=== PATIENT | male | born 1980 | race Two or more races ===

== ENCOUNTER 2020-04-09 12:09 | Inpatient (IN) | payer BC, MEDICAID ==
[~2020-04-09] VITALS: Ht 167.6 cm; Wt 81.0 kg
--- NOTE | 2020-04-09 12:35 | NUR ---
Cxr at bedside-Reviewed with provider (Suspicious for Covid) After discussion with legislative correspondent will leave patient in NON-negative pressure room as unlikely he will have aerosolized procedure. Room placed on Airborne Precautions After provider evaluation: plan to admit
--- NOTE | 2020-04-09 12:53 | NUR ---
repeat room air sat 80-82% good waveform on room air. Patient gets very dizzy off oxygen even at rest [employer] placing piv and getting labs
[2020-04-09] MEDS ORDERED: DOXYCYCLINE 100 MG in DEXTROSE 5% 250 ML IV ONE (13:00)
--- NOTE | 2020-04-09 13:53 | NUR ---
2 piv placed from which 2 set of blood cultures and full set of labs drawn
[2020-04-09 14:03] LABS: MEAN CORPUSCULAR HEMOGLOBIN 27.6 pg (27.5-34.5); MEAN CORPUSCULAR HGB CONC 33.1 g/dL (33.2-36.2); MEAN CORPUSCULAR VOLUME 83.2 fL (81-97); MEAN PLATELET VOLUME 7.3 fL (7.4-10.4); PLATELET COUNT 312 x10^3/uL (130-400); RED BLOOD COUNT 5.55 x10^6/uL (4.38-5.82); RED CELL DISTRIBUTION WIDTH 13.6 % (9.4-14.8)
[2020-04-09 14:08] LABS: ALBUMIN 2.5 g/dL (3.4-5.0); ANION GAP 7 mmol/L (5-15); CALCIUM 8.5 mg/dL (8.5-10.1); CHLORIDE 106 mmol/L (98-107); CREATININE 0.88 mg/dL (0.7-1.3)
--- NOTE | 2020-04-09 14:09 | NUR ---
doxy iv abx ordered from pharmacy (not stocketed in er [facility])
[2020-04-09] MEDS ORDERED: CEFTRIAXONE PMX 1GM/50ML 50 ML ONE (14:11)
--- NOTE | 2020-04-09 14:21 | NUR ---
medicated per emat 500ml bolus and rocephin abx Diet tray ordered Updated on estimated poc
[2020-04-09 14:27] LABS: C-REACTIVE PROTEIN, QUANT > 19.00 mg/dL (0.02-0.49)
[2020-04-09] MEDS ORDERED: SODIUM CHLORIDE 0.9%, 500ML IVBOLUS ONE (14:30)
[2020-04-09] MEDS ORDERED: CEFTRIAXONE PMX 1GM/50ML 50 ML IV ONE (14:30)
--- NOTE | 2020-04-09 15:01 | NUR ---
Hospitalist at bedside to admit rocephin complete, doxycycline started vss remain unchanged post 500ml bolus-provider aware Provided with Lunch tray Updated on estimated poc
[2020-04-09 15:11] LABS: D-DIMER (DIC) 2.34 ug/mlFEU (0.00-0.52); PROTIME 9.4 Seconds (9.6-11.5)
[2020-04-09] MEDS ORDERED: ACETAMINOPHEN 325 MG TABLET PO PRN (15:30)
[2020-04-09] MEDS ORDERED: hydrALAzine 20 MG/ML, 1ML IVPush PRN (15:30)
[2020-04-09] MEDS ORDERED: AZITHROMYCIN 500 MG in SODIUM CHLORIDE 0.9% 250 ML IV SCH (15:30)
[2020-04-09] MEDS ORDERED: ONDANSETRON 2MG/ML, 2ML IVPush PRN (15:30)
[2020-04-09 15:40] LABS: BASOPHILS % (AUTO) 0 % (0-1); EOSINOPHILS # (AUTO) 0.01 x10^3/uL (0-0.4); EOSINOPHILS % (AUTO) 0 % (1-7); LYMPHOCYTES # (AUTO) 1.37 x10^3/uL (1-3.4); LYMPHOCYTES % (AUTO) 11 % (22-44); MD SCAN; MONOCYTES # (AUTO) 0.03 x10^3/uL (0.2-0.8); MONOCYTES % (AUTO) 0 % (2-9); NEUTROPHILS # (AUTO) 10.88 x10^3/uL (1.8-6.8); NEUTROPHILS % (AUTO) 89 % (42-75)
--- NOTE | 2020-04-09 16:00 | NUR ---
INTRODUCED MYSELF TO PT. PT RESTING COMFORTABLY. WILL CONTINUE TO MONITOR.
--- NOTE | 2020-04-09 16:01 | NUR ---
Called hospitalist to ask for potassium repletion order and to re-time azithromycin until tmrw (just completed Doxy). Md to place orders shortly
--- NOTE | 2020-04-09 16:09 | NUR ---
GAVE REPORT TO HAMZAH DUNHAM Addendum: 04/09/20 at 1610 by RAE GAVE REPORT TO PIOTR DUNHAM
[2020-04-09] MEDS: ENOXAPARIN 40 MG/0.4 ML SQ SCH (16:45)
[2020-04-09] MEDS: ASCORBIC ACID 500 MG TABLET PO SCH ×2 (16:45→20:14)
[2020-04-09 16:54] VITALS: BP 118/79
[2020-04-09] MEDS ORDERED: POTASSIUM CHLORIDE 20 MEQ TAB.ER.PRT PO ONE (17:00)
[2020-04-09 21:36] VITALS: BP 111/76
[2020-04-10 00:57] VITALS: BP 105/69
[2020-04-10 01:59] VITALS: BP 90/55
[2020-04-10 05:58] LABS: CHLORIDE 110 mmol/L (98-107)
[2020-04-10 06:05] LABS: BASOPHILS # (AUTO) 0.04 x10^3/uL (0-0.1); BASOPHILS % (AUTO) 1 % (0-1); EOSINOPHILS # (AUTO) 0.05 x10^3/uL (0-0.4); EOSINOPHILS % (AUTO) 1 % (1-7); LYMPHOCYTES # (AUTO) 1.66 x10^3/uL (1-3.4); LYMPHOCYTES % (AUTO) 20 % (22-44); MD NO; MEAN CORPUSCULAR HEMOGLOBIN 27.2 pg (27.5-34.5); MEAN CORPUSCULAR HGB CONC 32.9 g/dL (33.2-36.2); MEAN CORPUSCULAR VOLUME 82.6 fL (81-97); MEAN PLATELET VOLUME 7.8 fL (7.4-10.4); MONOCYTES # (AUTO) 0.42 x10^3/uL (0.2-0.8); MONOCYTES % (AUTO) 5 % (2-9); NEUTROPHILS # (AUTO) 6.33 x10^3/uL (1.8-6.8); NEUTROPHILS % (AUTO) 74 % (42-75); PLATELET COUNT 308 x10^3/uL (130-400); RED BLOOD COUNT 5.14 x10^6/uL (4.38-5.82); RED CELL DISTRIBUTION WIDTH 14.3 % (9.4-14.8)
[2020-04-10 06:06] LABS: ALANINE AMINOTRANSFERASE 74 U/L (12-78); ALKALINE PHOSPHATASE 98 U/L (45-117); ANION GAP 5 mmol/L (5-15); BILIRUBIN,TOTAL 0.7 mg/dL (0.2-1.0); CALCIUM 8.2 mg/dL (8.5-10.1); CREATININE 0.78 mg/dL (0.7-1.3); TOTAL PROTEIN 7.4 g/dL (6.4-8.2)
[2020-04-10 09:04] VITALS: BP 122/82
[2020-04-10] MEDS: ASCORBIC ACID 500 MG TABLET PO SCH ×3 (09:24→21:18)
[2020-04-10] MEDS: CHOLECALCIFEROL 400 UNITS TABLET PO SCH (09:25)
[2020-04-10] MEDS: ZINC SULFATE 220 MG CAPSULE PO SCH (09:25)
[2020-04-10] MEDS: AZITHROMYCIN 500 MG in SODIUM CHLORIDE 0.9% 250 ML IV SCH (09:49)
[2020-04-10] MEDS: GUAIFENESIN ER 600 MG TABLET PO SCH ×2 (12:22→21:18)
[2020-04-10] MEDS: CEFTRIAXONE PMX 1GM/50ML 50 ML IV SCH (14:19)
[2020-04-10 15:51] VITALS: BP 113/75
[2020-04-10] MEDS: ENOXAPARIN 40 MG/0.4 ML SQ SCH (16:21)
[2020-04-10 21:01] VITALS: BP 119/79
[2020-04-11 02:15] VITALS: BP 106/68
[2020-04-11 06:05] LABS: CALCIUM 8.5 mg/dL (8.5-10.1); CHLORIDE 106 mmol/L (98-107)
[2020-04-11 06:13] LABS: ALANINE AMINOTRANSFERASE 71 U/L (12-78); ALKALINE PHOSPHATASE 104 U/L (45-117); ANION GAP 7 mmol/L (5-15); BILIRUBIN,TOTAL 0.7 mg/dL (0.2-1.0); CREATININE 0.71 mg/dL (0.7-1.3); TOTAL PROTEIN 7.6 g/dL (6.4-8.2)
[2020-04-11 06:20] LABS: ALBUMIN 2.1 g/dL (3.4-5.0)
[2020-04-11 07:21] VITALS: BP 101/64
[2020-04-11] MEDS: ASCORBIC ACID 500 MG TABLET PO SCH ×3 (09:58→20:22)
[2020-04-11] MEDS: CHOLECALCIFEROL 400 UNITS TABLET PO SCH (09:58)
[2020-04-11] MEDS: GUAIFENESIN ER 600 MG TABLET PO SCH ×2 (09:58→20:22)
[2020-04-11] MEDS: AZITHROMYCIN 500 MG in SODIUM CHLORIDE 0.9% 250 ML IV SCH (09:58)
[2020-04-11] MEDS: ZINC SULFATE 220 MG CAPSULE PO SCH (09:58)
[2020-04-11 14:30] VITALS: BP 117/74
[2020-04-11] MEDS: CEFTRIAXONE PMX 1GM/50ML 50 ML IV SCH (15:00)
[2020-04-11] MEDS: ENOXAPARIN 40 MG/0.4 ML SQ SCH (15:01)
[2020-04-11 19:18] VITALS: BP 129/78
[2020-04-11] MEDS: TEMAZEPAM 15 MG CAPSULE PO SCH (20:22)
[2020-04-12 00:15] VITALS: BP 116/79
[2020-04-12 08:00] VITALS: BP 112/65
[2020-04-12] MEDS: ZINC SULFATE 220 MG CAPSULE PO SCH (09:08)
[2020-04-12] MEDS: AZITHROMYCIN 500 MG in SODIUM CHLORIDE 0.9% 250 ML IV SCH (09:08)
[2020-04-12] MEDS: GUAIFENESIN ER 600 MG TABLET PO SCH ×2 (09:08→20:59)
[2020-04-12] MEDS: CHOLECALCIFEROL 400 UNITS TABLET PO SCH (09:08)
[2020-04-12] MEDS: ASCORBIC ACID 500 MG TABLET PO SCH ×3 (09:08→20:59)
[2020-04-12 14:05] VITALS: BP 127/76
[2020-04-12] MEDS: ENOXAPARIN 40 MG/0.4 ML SQ SCH (16:10)
[2020-04-12] MEDS: CEFTRIAXONE PMX 1GM/50ML 50 ML IV SCH (16:10)
[2020-04-12 20:55] VITALS: BP 118/79
[2020-04-12] MEDS: TEMAZEPAM 15 MG CAPSULE PO SCH (20:59)
[2020-04-13 01:34] VITALS: BP 118/81
[2020-04-13 05:56] LABS: ANION GAP 6 mmol/L (5-15); CALCIUM 8.5 mg/dL (8.5-10.1); CHLORIDE 106 mmol/L (98-107)
[2020-04-13 06:04] LABS: ALANINE AMINOTRANSFERASE 84 U/L (12-78); ALKALINE PHOSPHATASE 93 U/L (45-117); BILIRUBIN,TOTAL 0.5 mg/dL (0.2-1.0); CREATININE 0.75 mg/dL (0.7-1.3); TOTAL PROTEIN 7.9 g/dL (6.4-8.2)
[2020-04-13 07:10] VITALS: BP 113/71
[2020-04-13] MEDS: AZITHROMYCIN 500 MG in SODIUM CHLORIDE 0.9% 250 ML IV SCH (09:11)
[2020-04-13] MEDS: GUAIFENESIN ER 600 MG TABLET PO SCH ×2 (09:11→21:24)
[2020-04-13] MEDS: ZINC SULFATE 220 MG CAPSULE PO SCH (09:11)
[2020-04-13] MEDS: ASCORBIC ACID 500 MG TABLET PO SCH ×3 (09:12→21:24)
[2020-04-13] MEDS: CHOLECALCIFEROL 400 UNITS TABLET PO SCH (09:12)
[2020-04-13] MEDS: MEROPENEM 1 GM in SODIUM CHLORIDE 0.9% 100 ML IV SCH ×2 (12:22→21:23)
[2020-04-13 12:23] VITALS: BP 108/76
[2020-04-13] MEDS: ENOXAPARIN 40 MG/0.4 ML SQ SCH (17:57)
[2020-04-13 19:40] VITALS: BP 114/71
[2020-04-13] MEDS: TEMAZEPAM 15 MG CAPSULE PO SCH (21:23)
[2020-04-14 01:41] VITALS: BP 108/74
[2020-04-14] MEDS: MEROPENEM 1 GM in SODIUM CHLORIDE 0.9% 100 ML IV SCH ×3 (05:19→20:38)
[2020-04-14 08:16] VITALS: BP 117/78
[2020-04-14] MEDS: ZINC SULFATE 220 MG CAPSULE PO SCH (09:32)
[2020-04-14] MEDS: AZITHROMYCIN 500 MG in SODIUM CHLORIDE 0.9% 250 ML IV SCH (09:32)
[2020-04-14] MEDS: GUAIFENESIN ER 600 MG TABLET PO SCH ×2 (09:32→20:38)
[2020-04-14] MEDS: CHOLECALCIFEROL 400 UNITS TABLET PO SCH (09:33)
[2020-04-14] MEDS: ASCORBIC ACID 500 MG TABLET PO SCH ×3 (09:33→20:39)
[2020-04-14 12:39] VITALS: BP 108/65
[2020-04-14] MEDS: ENOXAPARIN 40 MG/0.4 ML SQ SCH (16:37)
[2020-04-14 19:55] VITALS: BP 117/68
[2020-04-14] MEDS: TEMAZEPAM 15 MG CAPSULE PO SCH (20:38)
[2020-04-15 02:09] VITALS: BP 112/74
[2020-04-15] MEDS: MEROPENEM 1 GM in SODIUM CHLORIDE 0.9% 100 ML IV SCH ×3 (05:16→20:36)
[2020-04-15 05:51] LABS: BASOPHILS # (AUTO) 0.03 x10^3/uL (0-0.1); BASOPHILS % (AUTO) 0 % (0-1); EOSINOPHILS # (AUTO) 0.15 x10^3/uL (0-0.4); EOSINOPHILS % (AUTO) 2 % (1-7); LYMPHOCYTES # (AUTO) 1.58 x10^3/uL (1-3.4); LYMPHOCYTES % (AUTO) 20 % (22-44); MD NO; MEAN CORPUSCULAR HEMOGLOBIN 27.2 pg (27.5-34.5); MEAN CORPUSCULAR HGB CONC 33.1 g/dL (33.2-36.2); MEAN CORPUSCULAR VOLUME 82.2 fL (81-97); MEAN PLATELET VOLUME 7.4 fL (7.4-10.4); MONOCYTES # (AUTO) 0.82 x10^3/uL (0.2-0.8); MONOCYTES % (AUTO) 10 % (2-9); NEUTROPHILS # (AUTO) 5.31 x10^3/uL (1.8-6.8); NEUTROPHILS % (AUTO) 67 % (42-75); PLATELET COUNT 503 x10^3/uL (130-400); RED BLOOD COUNT 4.86 x10^6/uL (4.38-5.82); RED CELL DISTRIBUTION WIDTH 13.1 % (9.4-14.8)
[2020-04-15 05:53] LABS: CALCIUM 8.4 mg/dL (8.5-10.1); CHLORIDE 108 mmol/L (98-107)
[2020-04-15 06:03] LABS: ALANINE AMINOTRANSFERASE 83 U/L (12-78); ALKALINE PHOSPHATASE 83 U/L (45-117); ANION GAP 7 mmol/L (5-15); BILIRUBIN,TOTAL 0.4 mg/dL (0.2-1.0); CREATININE 0.68 mg/dL (0.7-1.3); TOTAL PROTEIN 7.6 g/dL (6.4-8.2)
[2020-04-15 08:29] VITALS: BP 114/77
[2020-04-15] MEDS: ZINC SULFATE 220 MG CAPSULE PO SCH (09:54)
[2020-04-15] MEDS: CHOLECALCIFEROL 400 UNITS TABLET PO SCH (09:54)
[2020-04-15] MEDS: ASCORBIC ACID 500 MG TABLET PO SCH ×3 (09:54→20:36)
[2020-04-15] MEDS: AZITHROMYCIN 500 MG in SODIUM CHLORIDE 0.9% 250 ML IV SCH (09:54)
[2020-04-15] MEDS: GUAIFENESIN ER 600 MG TABLET PO SCH ×2 (09:54→20:36)
[2020-04-15] MEDS: methylPREDNISolone SOD SUCC 40 MG/ML IV SCH ×2 (11:28→20:36)
[2020-04-15 14:50] VITALS: BP 120/61
[2020-04-15] MEDS ORDERED: ENOXAPARIN 40 MG/0.4 ML SQ SCH (15:30)
[2020-04-15] MEDS: ENOXAPARIN 60 MG/0.6 ML SQ SCH (15:59)
[2020-04-15] MEDS ORDERED: ENOXAPARIN 60 MG/0.6 ML SQ SCH (16:00)
[2020-04-15 19:42] VITALS: BP 119/76
[2020-04-15] MEDS: TEMAZEPAM 15 MG CAPSULE PO SCH (20:36)
[2020-04-16 02:00] VITALS: BP 122/84
[2020-04-16] MEDS: MEROPENEM 1 GM in SODIUM CHLORIDE 0.9% 100 ML IV SCH ×3 (04:42→20:32)
[2020-04-16 08:50] VITALS: BP 102/68
[2020-04-16] MEDS: ZINC SULFATE 220 MG CAPSULE PO SCH (09:21)
[2020-04-16] MEDS: ASCORBIC ACID 500 MG TABLET PO SCH ×3 (09:21→20:32)
[2020-04-16] MEDS: GUAIFENESIN ER 600 MG TABLET PO SCH ×2 (09:21→20:32)
[2020-04-16] MEDS: methylPREDNISolone SOD SUCC 40 MG/ML IV SCH ×2 (09:21→20:32)
[2020-04-16] MEDS: CHOLECALCIFEROL 1,000 UNIT TABLET PO SCH (09:22)
[2020-04-16] MEDS: AZITHROMYCIN 500 MG in SODIUM CHLORIDE 0.9% 250 ML IV SCH (09:22)
[2020-04-16 12:33] VITALS: BP 101/62
[2020-04-16] MEDS: ENOXAPARIN 60 MG/0.6 ML SQ SCH (15:47)
[2020-04-16 19:25] VITALS: BP 115/71
[2020-04-16] MEDS: TEMAZEPAM 15 MG CAPSULE PO SCH (22:04)
[2020-04-17 00:29] VITALS: BP 110/71
[2020-04-17] MEDS: MEROPENEM 1 GM in SODIUM CHLORIDE 0.9% 100 ML IV SCH ×3 (05:25→21:50)
[2020-04-17 06:32] VITALS: BP 109/71
[2020-04-17 06:34] LABS: C-REACTIVE PROTEIN, QUANT 2.7 mg/dL (0.02-0.49)
[2020-04-17] MEDS: ASCORBIC ACID 500 MG TABLET PO SCH ×3 (08:30→20:32)
[2020-04-17] MEDS: methylPREDNISolone SOD SUCC 40 MG/ML IV SCH ×2 (08:30→20:32)
[2020-04-17] MEDS: AZITHROMYCIN 500 MG in SODIUM CHLORIDE 0.9% 250 ML IV SCH (08:30)
[2020-04-17] MEDS: CHOLECALCIFEROL 1,000 UNIT TABLET PO SCH (08:31)
[2020-04-17] MEDS: ZINC SULFATE 220 MG CAPSULE PO SCH (08:31)
[2020-04-17] MEDS: GUAIFENESIN ER 600 MG TABLET PO SCH ×2 (08:31→21:50)
[2020-04-17 12:18] VITALS: BP 117/71
[2020-04-17] MEDS: ENOXAPARIN 60 MG/0.6 ML SQ SCH (15:54)
[2020-04-17 20:23] VITALS: BP 117/72
[2020-04-17] MEDS: TEMAZEPAM 15 MG CAPSULE PO SCH (21:50)
[2020-04-18 02:59] VITALS: BP 106/68
[2020-04-18] MEDS: MEROPENEM 1 GM in SODIUM CHLORIDE 0.9% 100 ML IV SCH ×2 (05:07→12:17)
[2020-04-18 08:00] VITALS: BP 105/69
[2020-04-18] MEDS: ZINC SULFATE 220 MG CAPSULE PO SCH (08:25)
[2020-04-18] MEDS: CHOLECALCIFEROL 1,000 UNIT TABLET PO SCH (08:25)
[2020-04-18] MEDS: ASCORBIC ACID 500 MG TABLET PO SCH (08:25)
[2020-04-18] MEDS: GUAIFENESIN ER 600 MG TABLET PO SCH (08:25)
[2020-04-18] MEDS: AZITHROMYCIN 500 MG in SODIUM CHLORIDE 0.9% 250 ML IV SCH (09:20)
[2020-04-18] MEDS: methylPREDNISolone SOD SUCC 40 MG/ML IV SCH (09:20)
[2020-04-18] MEDS ORDERED: CIPR500T87 PO (10:40)
[2020-04-18] MEDS ORDERED: ZINC220C7 PO (10:40)
[2020-04-18] MEDS ORDERED: CHOL10003 PO (10:40)
[2020-04-18] MEDS ORDERED: PRED20TA PO (10:40)
[2020-04-18] MEDS ORDERED: ASCO500T9 PO (10:40)
[2020-04-18] MEDS ORDERED: GUAI600T31 PO (10:40)
[2020-04-18 13:57] VITALS: BP 111/67
== END 2020-04-18 15:56 | disposition home or self-care (01) | DRG 871 ==
LOC: ED 12:38 → EDIP 14:35 → 4NW 16:35
PROVIDERS: ADMIT Hospitalist; ATTEND Hospitalist
DX: A41.89 Other specified sepsis (principal); J12.89 Other viral pneumonia; J15.1 Pneumonia due to Pseudomonas; J96.01 Acute respiratory failure with hypoxia; U07.1 COVID-19; E87.6 Hypokalemia; G47.00 Insomnia, unspecified; Z78.9 Other specified health status
CPT/HCPCS: 36415; 71045; 80048; 80053; 82040; 82728; 83605; 83615; 83880; 84145; 85025; 85049; 85379; 85384; 85610; 85730; 86140; 86738; 87040; 87070; 87077; 87186; 87205; 87635; 93005; 96365; 96375; 99291; G0378; J0456; J0696; J1650; J2185; J7060; J2920; J7040; J7050; U0001-CS